=== PATIENT | male | born 1980 | race Caucasian/White ===

== ENCOUNTER → 2017-04-29 | Outpatient (CLI) | payer SELFPAY ==
[2013-11-04 15:34] VITALS: BP 143/93
[2017-04-29 17:54] LABS: STOOL FOR WBC NEGATIVE (NEGATIVE)
[2017-04-29 19:07] LABS: CRYPTOSPORIDIUM PARVUM ANTIGEN NEGATIVE (NEGATIVE); GIARDIA LAMBLIA ANTIGEN NEGATIVE (NEGATIVE)
== END ==
LOC: LAB 16:24
PROVIDERS: ATTEND Internal Medicine
DX: R19.7 Diarrhea, unspecified (principal); R11.2 Nausea with vomiting, unspecified; B96.89 Other specified bacterial agents as the cause of diseases classified elsewhere
CPT/HCPCS: 82270; 83630; 87045; 87328; 87329; 87336; 87427; 87493; 87899